=== PATIENT | male | born 1950 | race Caucasian/White ===

== ENCOUNTER → 2020-10-25 13:26 | Outpatient (CLI) | payer MEDICARE, SELFPAY ==
--- NOTE | ~2020-10-25 | XR_ITS ---
XR ribs BI 3V w CXR 2V DATE: 10/25/2020 13:50 INDICATION: Chest pain. Pleural pain. TECHNIQUE: PA and lateral chest. 3 views of the right ribs. 3 views of the left ribs. COMPARISON: 01/31/2015 right ribs FINDINGS: No left or right rib fracture or bone destruction is evident. Normal heart size. No hilar or mediastinal enlargement. The lungs are clear of infiltrate or consolidation. No pleural effusion or pulmonary vascular congest ion or pneumothorax is detected. Prominent degenerative spurring of the mid and lower thoracic spine. IMPRESSION: No rib fracture detected Prominent degenerative spurring of the mid and lower thoracic spine Reviewed, dictated and finalized at location A.
== END ==
PROVIDERS: PCP Family Medicine; Visit Provider Physician Assistant
DX: R07.81 Pleurodynia (principal)
CPT/HCPCS: 71046; 71110

== ENCOUNTER → 2022-05-16 14:37 | Outpatient (CLI) | payer MEDICARE, SELFPAY ==
--- NOTE | ~2022-05-16 | XR_ITS ---
EXAMINATION: XR chest 2V DATE: 05/16/2022 14:48 INDICATION: Cough, unspecified TECHNIQUE: PA and lateral views of the chest are obtained. COMPARISON: 10/25/2020 FINDINGS: There is a possible nodule of the left lower lobe. No pleural effusion or pneumothorax. The cardiomediastinal silhouette is normal. There is moderate thoracic spondylosis. IMPRESSION: 1. Possible left lower lobe nodule. Further evaluation with CT of the chest is recommended. Reviewed, dictated and finalized at location B. [employer]
== END ==
PROVIDERS: PCP Family Medicine; Visit Provider Physician Assistant
DX: R05.9 Cough, unspecified (principal)
CPT/HCPCS: 71046

== ENCOUNTER → 2022-05-26 12:35 | Outpatient (CLI) | payer MEDICARE, SELFPAY ==
--- NOTE | ~2022-05-26 | CT_ITS ---
EXAMINATION:CT diagnostic chest wo con DATE: 05/26/2022 13:05 INDICATION: Solitary pulmonary nodule. TECHNIQUE: Computed tomography (CT) of the chest was performed without intravenous contrast. Automate d exposure control and iterative reconstruction technique were employed. The dose-length product (DLP ) was 733.34 mGy-cm. COMPARISON: Chest 2 views 05/16/2022 FINDINGS: There are a few scattered nodules in the lungs measuring up to 5 mm, likely benign. There a re centrilobular nodules in superior segment left lower lobe, consistent with pneumonia. A calcified left lung nodule is consistent with old granulomatous disease. No pleural effusion. There is left atr ial enlargement of the heart. No pericardial effusion. There is a small sliding hiatal hernia. There is mild thoracic spondylosis. There is mild chronic anterior wedging of multiple vertebral bodies. Th ere is hypertrophic fusion of the bilateral T8 costovertebral joints. IMPRESSION: 1. No specific evidence of malignancy. 2. Mild pneumonia in superior segment left lower lobe. Reviewed, dictated and finalized at location A. ER BLENDER
== END ==
PROVIDERS: PCP Family Medicine; Visit Provider Physician Assistant
DX: R91.1 Solitary pulmonary nodule (principal); J18.9 Pneumonia, unspecified organism
CPT/HCPCS: 71250

== ENCOUNTER 2022-06-24 12:24 | Outpatient (CLI) | payer MEDICARE, SELFPAY ==
--- NOTE | ~2022-06-24 | XR_ITS ---
EXAMINATION: XR chest 2V DATE: 06/24/2022 12:56 INDICATION: Shortness of breath TECHNIQUE: PA and lateral views of the chest were obtained. COMPARISON: Chest radiograph dated 05/16/[address] dated 05/26/2022 FINDINGS: Unchanged linear discoid atelectasis/scarring in the right middle lobe. Lungs are otherwise clear wit h no pulmonary edema, pleural effusion or pneumothorax. Heart size is normal with small bilateral par acardial fat pads. Mild to moderate thoracic spondylosis. IMPRESSION: 1. Mild discoid atelectasis/scarring the right middle lobe. No other acute cardiopulmonary disease. Reviewed, dictated and finalized at location A. IMPRESSION: 1. Mild discoid atelectasis/scarring the right middle lobe. No other acute card iopulmonary disease.
[2022-06-24 12:56] LABS: Hematocrit 42.5 % (42.0-52.0); Hemoglobin 14.4 g/dL (14.0-18.0); Mean Corpuscular HGB Conc 33.9 g/dl (32-36); Mean Corpuscular Hemoglobin 31.3 pg (26-34); Mean Corpuscular Volume 92.4 fl (80-100); Mean Platelet Volume 9.1 fl (7.4-10.4); Platelet Count Result 225 k/mm3 (150-375); Red Cell Distribution Width 14.6 % (11.5-14.5); White Blood Count 14.3 K/mm3 (4.5-10.0)
[2022-06-24 13:07] LABS: Alanine Aminotransferase 46 U/L (6-50); Albumin Level 4.1 g/dL (3.5-5.1); Alkaline Phosphatase 93 U/L (38-126); Anion Gap 4 mmol/L (8-16); Aspartate Amino Transferase 28 U/L (17-59); Bilirubin,Total 0.8 mg/dL (0.2-1.3); Blood Urea Nitrogen 28 mg/dL (9-20); Calcium 9.3 mg/dL (8.4-10.2); Carbon Dioxide 27 mmol/L (22-30); Chloride 104 mmol/L (98-107); Estimated Glomerular Filt Rate 60; Glucose 155 mg/dL (65-110); Potassium 4.5 mmol/L (3.4-5.0); Sodium 135 mmol/L (137-145)
[2022-06-24 13:16] LABS: NT Pro B Type Natriuretic Pept 1190 pg/mL (19.9-100)
[2022-06-24 13:55] LABS: Lymphocytes Absolute Manual 0.71 K/mm3 (1.1-4.5); Monocytes Absolute Manual 0.71 K/mm3 (0.1-0.90); Monocytes Percent Manual 5 % (3-9); Neutrophils Percent Manual 90 % (46-73); Platelet Estimate Adequate (Adequate); Total Cells Counted 100
[2022-06-24 13:56] LABS: Schistocytes None Seen (NORMAL)
== END 2022-06-24 12:25 | disposition home or self-care (01) ==
PROVIDERS: PCP Family Medicine; Visit Provider Physician Assistant
DX: I48.91 Unspecified atrial fibrillation (principal); I50.9 Heart failure, unspecified; R00.0 Tachycardia, unspecified; R06.02 Shortness of breath; R91.8 Other nonspecific abnormal finding of lung field
CPT/HCPCS: 36415; 71046; 80053; 83880; 85025; 85380

== ENCOUNTER → 2022-07-02 11:28 | Outpatient (CLI) | payer MEDICARE, SELFPAY ==
--- NOTE | ~2022-07-02 | CT_ITS ---
CT Scan of the Chest without Contrast: Clinical Indication: Pneumonia Technique: Contiguous sections were acquired throughout the chest without intravenous contrast. Dose reduction technique was used on this scan by utilizing automated exposure control and iterative recon struction technique. The dose-length product (DLP) was 658.06 mGy-cm. COMPARISON: 05/26/2022 Findings: There is no evidence of any significant mediastinal, hilar or axillary lymphadenopathy. The mediastin al soft tissues appear normal. There is no evidence of pleural or pericardial effusion. No suspicious pulmonary nodule identified. Previously noted pneumonia has resolved. Images through the upper abdomen reveal no abnormalities. Impression: No significant abnormalities seen.. Previously noted left lower lobe pneumonia has resolved. Reviewed, dictated and finalized at location . Impression: No significant abnormalities seen.. Previously noted left lower lobe pneumonia has resolved.
== END ==
PROVIDERS: PCP Family Medicine; Visit Provider Physician Assistant
DX: J18.9 Pneumonia, unspecified organism (principal); R06.02 Shortness of breath; R93.89 Abnormal findings on diagnostic imaging of other specified body structures
CPT/HCPCS: 71250

== ENCOUNTER → 2022-10-20 15:25 | Outpatient (CLI) | payer MEDICARE, SELFPAY ==
--- NOTE | ~2022-10-20 | XR_ITS ---
XR chest 2V DATE: 10/20/2022 15:41 INDICATION: Cough TECHNIQUE: 2 views COMPARISON: 07/02/2022 CT chest FINDINGS: Heart size is within normal range. No hilar or mediastinal enlargement. No pulmonary infilt rate or consolidation, pleural effusion or pulmonary vascular congestion or pneumothorax is detected. Degenerative spurring of the thoracic spine. IMPRESSION: No active cardiopulmonary disease Reviewed, dictated and finalized at location B.
== END ==
PROVIDERS: PCP Family Medicine; Visit Provider Family Medicine
DX: R05.9 Cough, unspecified (principal)
CPT/HCPCS: 71046